=== PATIENT | female | born 1975 | race Caucasian/White ===

== ENCOUNTER → 2016-08-05 | Outpatient (REF) | payer OTHER | LOC: M LAB REF 18:17 | PROVIDERS: ATTEND Physician Assistant Medical | DX: M54.5 Low back pain (principal) ==

== ENCOUNTER → 2017-07-03 | Outpatient (REF) | payer OTHER | LOC: M LAB REF 18:30 | DX: J02.9 Acute pharyngitis, unspecified (principal) | CPT/HCPCS: 87081 ==

== ENCOUNTER → 2017-07-14 | Outpatient (REF) | payer OTHER | LOC: M LAB REF 09:31 | DX: R10.31 Right lower quadrant pain (principal) ==

== ENCOUNTER → 2018-06-16 | Outpatient (CLI) | payer OTHER ==
--- NOTE | 2018-06-16 11:39 | REP ---
Right wrist series: Four views. History: Pain in the right wrist. Findings: Four views of the right wrist demonstrate a comminuted impacted distal radial fracture with dorsal displacement and apex volar angulation. There is associated soft-tissue swelling. There is an associated ulnar styloid chip fracture. No carpal injury is seen. Impression: Distal radial and ulnar fractures. Electronically Signed by Cristian Middleton MD 06/16/2018 11:31 A
== END ==
LOC: M ADAMS 11:01
PROVIDERS: ATTEND Physician Assistant
DX: S52.611A Displaced fracture of right ulna styloid process, initial encounter for closed fracture (principal); S52.591A Other fractures of lower end of right radius, initial encounter for closed fracture; Y92.89 Other specified places as the place of occurrence of the external cause; Y93.89 Activity, other specified; X58.XXXA Exposure to other specified factors, initial encounter; Y99.8 Other external cause status

== ENCOUNTER → 2018-07-11 | Outpatient (CLI) | payer OTHER ==
--- NOTE | 2018-07-12 06:53 | REP ---
Clinical: Status post open reduction and fixation for comminuted distal radius fracture with pain. Technique: Axial noncontrast images through the wrist with coronal and sagittal re-formations. Findings: The patient is status post open reduction and fixation of the distal radius fracture. Small posterior fracture fragments of the distal radius are identified. Very small chip fractures are noted involving the dorsal contour of the lunate bone as well as an essentially non displaced fracture of the ulnar styloid. Surrounding post traumatic and postsurgical soft tissue changes are identified. No further acute fracture noted. Impression: 1. Seemingly satisfactory open reduction and fixation for comminuted distal radius fracture. 2. Nondisplaced ulnar styloid fracture and very small chip fractures along the dorsal contour of the lunate bone identified along with postsurgical and post traumatic surrounding soft tissue changes. Electronically Signed by Mayito Barr MD 07/12/2018 06:44 A
== END ==
LOC: M RAD 09:43
PROVIDERS: ATTEND Orthopaedic Surgery
DX: S52.501D Unspecified fracture of the lower end of right radius, subsequent encounter for closed fracture with routine healing (principal); S52.601D Unspecified fracture of lower end of right ulna, subsequent encounter for closed fracture with routine healing; X58.XXXD Exposure to other specified factors, subsequent encounter